=== PATIENT | female | born 1980 | race Caucasian/White ===

== ENCOUNTER 2021-09-10 20:14 | Emergency (ER) | payer MEDICAID ==
[~2021-09-10] VITALS: Ht 167.6 cm; Wt 117.9 kg
--- NOTE | 2021-09-10 20:30 | NUR ---
Patient triaged and placed in waiting room. VSS and patient appears in no acute distress at this time. Accompanied by self , awaiting available bed, and MD notified of need for MSE.
[2021-09-10 20:32] VITALS: BP_SYST 162
--- NOTE | 2021-09-10 20:32 | NUR ---
Pt brought by self, A&Ox4, pt presents to ER with L upper abdominal pain x 3 days, skin pink and warm, cap refill <3, VSS, respirations even and unlabored, no N/V noted at this time,will cont to monitor.
[2021-09-10 21:06] LABS: BASOPHILS # (AUTO) 0.1 K/uL (0.0-0.2); BASOPHILS % (AUTO) 0.6 % (0.0-2.0); EOSINOPHILS # (AUTO) 0.2 K/uL (0.0-0.4); EOSINOPHILS % (AUTO) 1.9 % (0.0-4.0); HEMOGLOBIN 13.7 g/dL (12.0-16.0); MEAN CORPUSCULAR HEMOGLOBIN 29 pg (27-31); MEAN CORPUSCULAR HGB CONC 34 % (32-36); MEAN CORPUSCULAR VOLUME 84 fL (79.0-98.0); MONOCYTES # (AUTO) 1.1 K/uL (0.0-1.0); MONOCYTES % (AUTO) 13.9 % (1.7-9.3); NEUTROPHILS # (AUTO) 4.7 K/uL (1.8-7.7); NEUTROPHILS % (AUTO) 58.6 % (40.0-70.0); PLATELET COUNT (AUTO) 144 K/uL (130-430); RED BLOOD CELL COUNT(AUTO) 4.75 MIL/uL (4.2-6.2); WHITE BLOOD COUNT (AUTO) 8.1 K/uL (4.8-10.8)
[2021-09-10 21:07] LABS: CALCIUM 8.1 mg/dL (8.4-11.0); CREATININE 0.68 mg/dL (0.55-1.30); POTASSIUM 3.5 mmol/L (3.5-5.1)
[2021-09-10 21:12] LABS: ALBUMIN 3.4 g/dL (3.4-4.8); TOTAL BILIRUBIN 0.4 mg/dL (0.0-1.0)
--- NOTE | 2021-09-10 22:53 | NUR ---
Dr Schofield evaluating patient in the triage room
--- NOTE | 2021-09-10 23:04 | NUR ---
Report given to Nica CARVER
[2021-09-11] MEDS ORDERED: KETOROLAC TROMETHAMINE 60 MG/2 ML VIAL IM ONE ×2 (00:01)
[2021-09-11 00:23] LABS: BILIRUBIN,URINE NEGATIVE (NEGATIVE); CLARITY/URINE SL CLOUDY (CLEAR); COLOR,URINE YELLOW (YELLOW); GLUCOSE,URINE NEGATIVE (NEGATIVE); KETONES,URINE NEGATIVE (NEGATIVE); LEUKOCYTE ESTERASE ,URINE NEGATIVE (NEGATIVE); NITRITE, URINE POSITIVE (NEGATIVE); PH,URINE 5.5 (5.0-8.0); PROTEIN URINE NEGATIVE (NEGATIVE); UROBILINOGEN,URINE 0.2 (0.2-1.0)
[2021-09-11 00:27] LABS: BLOOD, URINE TRACE (NEGATIVE)
[2021-09-11 00:37] LABS: BACTERIA,URINE MANY /HPF (None Seen); WBC,URINE 0-3 /HPF (0-3)
[2021-09-11 00:38] LABS: URINE AMORPHOUS URATE 3+ /HPF (None Seen)
[2021-09-11] MEDS ORDERED: CIPR500T5 PO (00:44)
[2021-09-11] MEDS ORDERED: NAPR-1172 PO (00:44)
[2021-09-11] MEDS ORDERED: cefTRIAXone 1 GM in LIDOCAINE 1%, 20 ML MDV 2.1 ML IM ONE (00:45)
--- NOTE | 2021-09-11 01:03 | NUR ---
Patient given written and verbal discharge instructions and verbalizes understanding. ER MD discussed with patient the results and treatment provided. Patient in stable condition. ID arm band removed. Rx of given. Patient educated on pain management and to follow up with PMD. Pain Scale . Opportunity for questions provided and answered. Medication side effect fact sheet provided.
[2021-09-11 01:10] VITALS: BP_SYST 127
== END 2021-09-11 01:10 | disposition home or self-care (01) ==
LOC: SED 20:14
DX: N39.0 Urinary tract infection, site not specified (principal); R10.32 Left lower quadrant pain; Z79.899 Other long term (current) drug therapy
CPT/HCPCS: 36415; 74176; 76376; 80053; 81000; 81025; 83605; 83690; 85025; 87040; 87086; 96372; 99284; J0696; J1885; J2001

== ENCOUNTER 2023-05-11 12:22 | Emergency (ER) | payer MEDICAID ==
[~2023-05-11] VITALS: Ht 167.6 cm; Wt 95.3 kg
[~2023-05-11 12:22] MED LIST: CIPR500T5 PO; NAPR-1172 PO
[2023-05-11 12:29] VITALS: TEMP 96.9; O2SAT 98
[2023-05-11] MEDS ORDERED: NAPR-690 PO (15:17)
[2023-05-11 15:27] VITALS: BP_SYST 128; PULSE 82; RESP 18; TEMP 96.9; O2SAT 98
== END 2023-05-11 15:27 | disposition home or self-care (01) ==
LOC: SED 12:22
DX: S20.212A Contusion of left front wall of thorax, initial encounter (principal); V00.811A Fall from moving wheelchair (powered), initial encounter; Y93.89 Activity, other specified; Y92.89 Other specified places as the place of occurrence of the external cause; Y99.8 Other external cause status; Z79.899 Other long term (current) drug therapy
CPT/HCPCS: 71045; 81025; 93005; 99283